=== PATIENT | female | born 1965 | race Caucasian/White ===

== ENCOUNTER 2017-07-18 01:11 | Emergency (ER) | payer MEDICARE ==
[~2017-07-18] VITALS: Ht 160 cm; Wt 71.3 kg
[~2017-07-18 01:11] MED LIST: DELTASONE20 MG PO; GLUCOPHAGE1000 MG PO; MOTRIN800 MG PO; MULTIVITAMIN1 EAC1 PO; Milk Of Magnesia,MOM PO; PERCOCET 5/31 TABLET PO; PREDNISONE20 MG PO; PROTONIX40 MG PO; SKELAXIN400 M1 PO; TYLENOL325 M1 PO; Tylenol Regular Stre PO
[2017-07-18] MEDS ORDERED: PERCOCET 5/31 TABLET PO (02:23)
[2017-07-18 02:36] VITALS: BP 123/71
== END 2017-07-18 02:37 | disposition home or self-care (01) ==
LOC: EME 01:11
DX: S43.52XA Sprain of left acromioclavicular joint, initial encounter (principal); S40.012A Contusion of left shoulder, initial encounter; W10.9XXA Fall (on) (from) unspecified stairs and steps, initial encounter; Z79.82 Long term (current) use of aspirin; E11.9 Type 2 diabetes mellitus without complications; Z79.84 Long term (current) use of oral hypoglycemic drugs; I10 Essential (primary) hypertension
CPT/HCPCS: 73030; 99281; 99284

== ENCOUNTER 2017-10-02 22:06 | Observation (INO) | payer MEDICARE ==
[~2017-10-02] VITALS: Ht 160 cm; Wt 73.7 kg
[~2017-10-02 22:06] MED LIST changes: +DAILY VALUE1 EACH PO; -GLUCOPHAGE1000 MG PO; +GLUCOPHAGE500 MG PO; -MULTIVITAMIN1 EAC1 PO; +PREDNISONE5 MG PO
[2017-10-02 22:29] LABS: HEMATOCRIT 42.4 % (36.0-46.0); HEMOGLOBIN 14.8 G/DL (11.9-15.5); MCH 30.9 PG (29.0-34.0); MCHC 34.9 G/DL (30.0-36.0); MCV 88.5 FL (83-99); PLATELET COUNT 282 K/uL (156-360); RBC DIS.WIDTH-CV 12.5 % (11.8-14.6); RBC DIS.WIDTH-SD 40.9 % (39-53); RED BLOOD COUNT 4.79 M/uL (3.80-5.20)
[2017-10-02 22:40] LABS: CHLORIDE 98 mEq/L (99-109); POTASSIUM 3.2 mEq/L (3.7-5.4); SODIUM 141 mEq/L (136-147)
[2017-10-02 22:41] LABS: GLUCOSE 171 mg/dL (70-99)
[2017-10-02 22:45] LABS: GFR ESTIMATE (CALCULATED) > 59 mL/min/
[2017-10-02 22:46] LABS: UREA NITROGEN (BUN) 20 mg/dL (9-23)
[2017-10-02 22:54] LABS: TROP-I INTERPRETATION NEGATIVE; TROPONIN-I < 0.01 ng/mL (0.0-0.30)
[2017-10-02 22:58] LABS: D-DIMER ELISA < 150.00 ng/mLDDU (<230)
[2017-10-03] MEDS ORDERED: KRILL OIL500 MG PO (01:16)
[2017-10-03] MEDS ORDERED: EFFEXOR XR37.5 MG PO (01:16)
[2017-10-03] MEDS ORDERED: ADULT ASPIRIN81 MG PO (01:16)
[2017-10-03] MEDS ORDERED: FARXIGA5 MG PO (01:16)
[2017-10-03 03:15] VITALS: BP 120/64
[2017-10-03 05:22] LABS: TROP-I INTERPRETATION NEGATIVE; TROPONIN-I < 0.01 ng/mL (0.0-0.30)
[2017-10-03 05:31] LABS: HDL CHOLESTEROL 41 MG/DL (Desirable>=50); LDL CHOLESTEROL 99 mg/dL (Desirable<100); NON-HDL CHOLESTEROL 122 mg/dL (Desirable<160); TOTAL CHOLESTEROL 163 mg/dL (Desirable<200); TRIGLYCERIDES 116 MG/DL (Normal: <150)
[2017-10-03 08:16] VITALS: BP 110/56
[2017-10-03 11:37] LABS: TROP-I INTERPRETATION NEGATIVE; TROPONIN-I < 0.01 ng/mL (0.0-0.30)
== END 2017-10-03 11:59 | disposition home or self-care (01) ==
LOC: EME 22:06 → ENPENDDIS 10-03 → EDOF 10-03 02:11 → 4SOUTH 10-03 02:11 → EDOF 10-03 02:11 → ENRESERV 10-03 02:14 → 4SOUTH 10-03 03:09
PROVIDERS: Internal Medicine; Physician Assistant Medical
DX: R07.89 Other chest pain (principal); F41.0 Panic disorder [episodic paroxysmal anxiety]; F41.1 Generalized anxiety disorder; E87.6 Hypokalemia; G89.29 Other chronic pain; M54.12 Radiculopathy, cervical region; M54.16 Radiculopathy, lumbar region; I10 Essential (primary) hypertension; E78.5 Hyperlipidemia, unspecified; E11.65 Type 2 diabetes mellitus with hyperglycemia; Z90.49 Acquired absence of other specified parts of digestive tract; Z90.710 Acquired absence of both cervix and uterus; Z82.49 Family history of ischemic heart disease and other diseases of the circulatory system; Z80.0 Family history of malignant neoplasm of digestive organs; Z80.41 Family history of malignant neoplasm of ovary; Z79.82 Long term (current) use of aspirin; Z79.84 Long term (current) use of oral hypoglycemic drugs; Z98.1 Arthrodesis status; R91.8 Other nonspecific abnormal finding of lung field
CPT/HCPCS: 71046; 71275; 80048; 80061; 82948; 84484; 85027; 85379; 93005; 99281; 99285; G0378; J1200; J1885; J2060; J7030; J7512